=== PATIENT | male | born 1990 | race Caucasian/White ===

== ENCOUNTER 2019-09-14 22:32 | Emergency (ER) | payer BC ==
[~2019-09-14] VITALS: Ht 190.5 cm; Wt 99.8 kg
[2019-09-14 22:54] VITALS: BP_SYST 131
--- NOTE | 2019-09-15 00:05 | NUR ---
Pt ambulatory to bed 8 for evaluation
--- NOTE | 2019-09-15 01:00 | NUR ---
Dr. Martínez bedside for pt eval
--- NOTE | 2019-09-15 01:10 | NUR ---
Pt BIB family to ED with Hx of asthma who presents to the ED for evaluation of acute onset bilateral lower extremity pain and swelling that began on 08/28/2019. He reports his bilateral leg pain is moderate in nature and non-radiating. He states he was diagnosed with cellulitis after seeking treatment for his symptoms and was placed on Bactrim for 10 days. The patient reports being compliant with his antibiotics but states his swelling and pain has returned a few days ago. No s/s of acute distress Resting on gurney rails up
[2019-09-15 01:52] LABS: BASOPHILS # (AUTO) 0.1 K/uL (0.0-0.2); EOSINOPHILS # (AUTO) 0.5 K/uL (0.0-0.4); HEMATOCRIT 43.2 % (36-54); HEMOGLOBIN 14.5 g/dL (14.0-18.0); LYMPHOCYTES # (AUTO) 3.2 K/uL (1.0-5.5); LYMPHOCYTES % (AUTO) 32.7 % (20.5-51.5); MEAN CORPUSCULAR HEMOGLOBIN 30 pg (27-31); MEAN CORPUSCULAR HGB CONC 34 % (32-36); MEAN CORPUSCULAR VOLUME 90 fL (79.0-98.0); MONOCYTES # (AUTO) 1.1 K/uL (0.0-1.0); MONOCYTES % (AUTO) 11.6 % (1.7-9.3); NEUTROPHILS # (AUTO) 4.8 K/uL (1.8-7.7); NEUTROPHILS % (AUTO) 49.7 % (40.0-70.0); PLATELET COUNT (AUTO) 428 K/uL (130-430); RED CELL DISTRIBUTION WIDTH 13.4 % (9.0-15.0); WHITE BLOOD COUNT (AUTO) 9.7 K/uL (4.8-10.8)
[2019-09-15 02:09] LABS: CALCIUM 8.9 mg/dL (8.4-11.0); CREATININE 1.13 mg/dL (0.55-1.30); POTASSIUM 4.5 mmol/L (3.5-5.1)
[2019-09-15 02:14] LABS: ALBUMIN 3.3 g/dL (3.4-4.8); TOTAL BILIRUBIN 0.3 mg/dL (0.0-1.0)
[2019-09-15] MEDS ORDERED: LEVOFLOXACIN 500 MG TABLET PO ONE (02:45)
--- NOTE | 2019-09-15 02:55 | NUR ---
Pt taken to Radiology in stable condition
--- NOTE | 2019-09-15 03:04 | NUR ---
Pt back from Radiology, well tolerated
--- NOTE | 2019-09-15 03:35 | NUR ---
Dr. Martínez bedside for pt update
[2019-09-15 03:45] VITALS: BP_SYST 131
--- NOTE | 2019-09-15 03:45 | NUR ---
Patient given written and verbal discharge instructions and verbalizes understanding. ER MD discussed with patient the results and treatment provided. Patient in stable condition. ID arm band removed. Rx of Levaquin given. Patient educated on pain management and to follow up with PMD. Pain Scale 0/10 Opportunity for questions provided and answered. Medication side effect fact sheet provided.
== END 2019-09-15 03:45 | disposition home or self-care (01) ==
LOC: SED 22:32
DX: L03.116 Cellulitis of left lower limb (principal); L03.115 Cellulitis of right lower limb; R10.84 Generalized abdominal pain; J45.909 Unspecified asthma, uncomplicated; F17.200 Nicotine dependence, unspecified, uncomplicated; Z88.8 Allergy status to other drugs, medicaments and biological substances
CPT/HCPCS: 36415; 80053; 83605; 85025; 87040-TC; 93970; 99285

== ENCOUNTER 2020-11-29 11:36 | Emergency (ER) | payer BC ==
[~2020-11-29] VITALS: Ht 190.5 cm; Wt 99.8 kg
[2020-11-29 11:44] VITALS: BP_SYST 121
[2020-11-29] MEDS ORDERED: IBUPROFEN 800 MG TABLET PO ONE (12:15)
[2020-11-29] MEDS ORDERED: HYDROcodone/ACETAMIN 10-325 MG TAB PO ONE (12:15)
[2020-11-29 13:17] LABS: STREPTOCOCCUS A SCREEN (RAPID) NEGATIVE (NEGATIVE)
[2020-11-29 13:47] LABS: MONOTEST NEGATIVE (NEGATIVE)
[2020-11-29] MEDS ORDERED: PRED20TA PO (14:00)
[2020-11-29 14:11] VITALS: BP_SYST 121
== END 2020-11-29 14:11 | disposition home or self-care (01) ==
LOC: SED 11:36
DX: J02.9 Acute pharyngitis, unspecified (principal); J45.909 Unspecified asthma, uncomplicated; Z88.8 Allergy status to other drugs, medicaments and biological substances
CPT/HCPCS: 36415; 86308-TC; 86403; 87081; 99283